=== PATIENT | male | born 1990 | race American Indian/Alaskan Native ===

== ENCOUNTER 2021-12-20 10:00 | Emergency (ER) | payer SELFPAY ==
[2021-12-20 10:50] VITALS: BP 109/67
[2021-12-20] MEDS ORDERED: ACETAMINOPHEN 500 MG TAB PO ONE (11:32)
[2021-12-20] MEDS ORDERED: IBUPROFEN 800 MG TAB PO ONE (11:32)
[2021-12-20] MEDS ORDERED: ONDANSETRON 4 MG ODT TAB PO ONE (11:39)
--- NOTE | 2021-12-20 11:41 | Emergency Department Report ---
Minor Respiratory - HPI Chief Complaint: Upper Respiratory Infection Stated Complaint: SICK Duration: 2 Days Severity: moderate Minor Respiratory: Yes Rhinorrhea, Yes Sore Throat, Yes Cough, Yes Shortness of Breath, Yes Fever, No Chest Pain Other History: 31-year-old morbid obese -[place] male presents to the emergency room complaining of cough, headache, nasal congestion, runny nose, body aches, fever and chills with nausea and vomiting and diarrhea times day 2. Patient states he took NyQuil last night and DayQuil at this morning. Patient reports he vomited 3 times this morning with 3 episodes of diarrhea. He is unvaccinated and has not tested for Covid. ED Review of Systems ROS: Stated complaint: SICK Other details as noted in HPI Comment: All other systems reviewed and negative Constitutional: chills, fever, malaise, weakness ENT: throat pain, congestion, other (Rhinorrhea) Respiratory: cough (Dry cough), shortness of breath Gastrointestinal: nausea, vomiting, diarrhea Minor Respiratory Exam - Exam General: Vital signs noted. No distress. Alert and acting appropriately. HEENT: Yes Moist Mucous Membranes, No Pharyngeal Erythema, No Pharyngeal Exudates, No Rhinorrhea, No Conjuctival Injection, No Frontal Tenderness, No Maxillary Tenderness Ear: Neither TM Bulge, Neither TM Erythema, Neither EAC Pain, Neither EAC Discharge Neck: Yes Supple, No Adenopathy Lungs: Yes Good Air Exchange, No Wheezes, No Ronchi, No Stridor, No Cough, No Labored Respirations, No Retractions, No Use of Accessory Muscles, No Other Abnormal Lung Sounds Neurologic: Alert and oriented, no deficits. Musculoskeletal: Unremarkable. ED Course Vital Signs 12/20/21 10:48 Temperature 102.8 F H Pulse Rate 125 H Blood Pressure 109/67 O2 Sat by Pulse 96 Oximetry ED Medical Decision Making - Radiology Data Radiology results: report reviewed [facility] [address] [place] [address] XRay Report Signed Patient: RAMÓN CANDELARIA MR#: [id number] : 1990 Acct:[id number] Age/Sex: 31 / M ADM Date: 12/20/21 Loc: ED Attending Dr: Ordering Physician: KIRILL MAYNARD Date of Service: 12/20/21 Procedure(s): XR chest routine 2V Accession Number(s): [id number] cc: KIRILL MAYNARD Fluoro Time In Minutes: CHEST 2 VIEWS INDICATION / CLINICAL INFORMATION: Cough. COMPARISON: None available. FINDINGS: SUPPORT DEVICES: None. HEART / MEDIASTINUM: The heart size and pulmonary vasculature are normal. LUNGS / PLEURA: No significant pulmonary or pleural abnormality. No pneumothorax. ADDITIONAL FINDINGS: No significant additional findings. IMPRESSION: No acute findings. Signer Name: Chris Mendoza MD Signed: 12/20/2021 11:49 AM Workstation Name: [id number] Transcribed By: RT Dictated By: Chris Mendoza MD Electronically Authenticated By: Chris Mendoza MD Signed Date/Time: 12/20/21 114 DD/ 47 TD/TT: - Medical Decision Making 31-year-old morbid obese -[place] male presents to the emergency room complaining of cough, headache, nasal congestion, runny nose, body aches, fever and chills with nausea and vomiting and diarrhea times day 2. Patient states he took NyQuil last night and DayQuil at this morning. Patient reports he vomited 3 times this morning with 3 episodes of diarrhea. He is unvaccinated and has not tested for Covid. Patient is given Tylenol 1 g p.o. ibuprofen 800 mg chest x-ray. Critical care attestation.: If time is entered above; I have spent that time in minutes in the direct care of this critically ill patient, excluding procedure time. ED Disposition Clinical Impression: Suspected COVID-19 virus infection Disposition: HOME / SELF CARE / HOMELESS Is pt being admited?: No Does the pt Need Aspirin: No Condition: Stable Instructions: Prevent the Spread of COVID-19 if You Are Sick - CDC, COVID-19: How to Protect Yourself and Others - CDC, COVID-19 Frequently Asked Questions Additional Instructions: Your symptoms appear most consistent with a nonspecific viral syndrome. However, given this current pandemic, COVID-19 is in the differential of possibilities. Despite your previous negative COVID-19 test, I do recommend repeat outpatient Covid 19 testing. In the meantime, isolate/quarantine yourself and stay away from anyone who is elderly, immunocompromised or chronically ill. You can use ibuprofen every 6-8 hours and Tylenol every 4-8 hours, using the dosing on the back of the bottle, as needed for any fever or body aches. Return to the emergency department with any worsening of your symptoms, development of chest pain or shortness of breath, or with any acute distress. Referrals: PRIMARY CARE,MD [Primary Care Provider] - 3-5 Days [facility] [Provider Group] - 3-5 Days Forms: Work/School Release Form(ED) Time of Disposition: 13:54
--- NOTE | 2021-12-20 11:53 | XRay Report ---
CHEST 2 VIEWS INDICATION / CLINICAL INFORMATION: Cough. COMPARISON: None available. FINDINGS: SUPPORT DEVICES: None. HEART / MEDIASTINUM: The heart size and pulmonary vasculature are normal. LUNGS / PLEURA: No significant pulmonary or pleural abnormality. No pneumothorax. ADDITIONAL FINDINGS: No significant additional findings. IMPRESSION: No acute findings. Signer Name: Chris Mendoza MD Signed: 12/20/2021 11:49 AM Workstation Name: [id number]
== END 2021-12-20 14:34 | disposition home or self-care (01) ==
LOC: ED 10:00
DX: R05.9 Cough, unspecified (principal); R51.9 Headache, unspecified; R09.81 Nasal congestion; Z20.822 Contact with and (suspected) exposure to COVID-19
CPT/HCPCS: 71046; 99283; J3490; Q0162

== ENCOUNTER 2022-06-08 00:53 | Emergency (ER) | payer OTHER ==
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
[2022-06-08] MEDS ORDERED: CYCLOBENZAPRINE 10 MG TAB PO ONE (09:06)
[2022-06-08] MEDS ORDERED: HYDROcodone/ACETAMINOPHEN 10-325MG TAB PO ONE (09:06)
[2022-06-08] MEDS ORDERED: IBUPROFEN 800 MG TAB PO ONE (09:06)
[2022-06-08] MEDS ORDERED: SODIUM CHLORIDE 0.9% IRR 500 ML BOTTLE IR NR (09:07)
[2022-06-08] MEDS ORDERED: TETANUS,DIPH,PERTUSS(ACELL) VACCINE 0.5 ML SYRINGE IM ONE (09:07)
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
--- NOTE | 2022-06-08 10:16 | XRay Report ---
RIGHT FOREARM 2 VIEWS INDICATION: pain. COMPARISON: None. IMPRESSION: No acute osseous or soft tissue abnormality. No significant joint pathology. Signer Name: Bi Valdivia Jr, MD Signed: 06/08/2022 10:11 AM Workstation Name: [id number]
[2022-06-08 11:52] VITALS: BP 119/80
== END 2022-06-08 12:06 | disposition home or self-care (01) ==
LOC: ED 00:53
DX: M79.18 Myalgia, other site (principal); J45.909 Unspecified asthma, uncomplicated; F10.20 Alcohol dependence, uncomplicated; V89.2XXA Person injured in unspecified motor-vehicle accident, traffic, initial encounter; Y93.89 Activity, other specified; Y92.89 Other specified places as the place of occurrence of the external cause; Y99.8 Other external cause status
CPT/HCPCS: 72040; 72100; 90471; 90715; 99283